=== PATIENT | male | born 1940 | race Caucasian/White ===

== ENCOUNTER → 2016-10-27 | Outpatient (CLI) | payer MEDICARE, OTHER | END | disposition home or self-care (01) | LOC: CFH 15:14 | PROVIDERS: ATTEND Internal Medicine Cardiovascular Disease | DX: R22.32 Localized swelling, mass and lump, left upper limb (principal); I82.722 Chronic embolism and thrombosis of deep veins of left upper extremity ==

== ENCOUNTER → 2016-11-13 | Outpatient (CLI) | payer MEDICARE, OTHER | END | disposition home or self-care (01) | LOC: CARD 09:42 | PROVIDERS: ATTEND Neurological Surgery | DX: M51.36 Other intervertebral disc degeneration, lumbar region (principal); J84.9 Interstitial pulmonary disease, unspecified | CPT/HCPCS: 94060; 94726; 94729 ==

== ENCOUNTER → 2016-11-16 | Outpatient (CLI) | payer MEDICARE, OTHER ==
[~2016-11-16] MED LIST: AMINOPHYLLINE 25 MG/ML, 10ML ONE; REGADENOSON 0.4 MG/5 ML SYRINGE ONE
== END | disposition home or self-care (01) ==
LOC: CFH 12:09
PROVIDERS: ATTEND Internal Medicine Cardiovascular Disease
DX: Z01.810 Encounter for preprocedural cardiovascular examination (principal); R07.9 Chest pain, unspecified
CPT/HCPCS: 78452; 93017; A9502; J0280; J2785

== ENCOUNTER → 2016-11-18 | Outpatient (CLI) | payer MEDICARE, OTHER | END | disposition home or self-care (01) | LOC: RAD 11:08 | PROVIDERS: ATTEND Neurological Surgery | DX: M41.86 Other forms of scoliosis, lumbar region (principal) | CPT/HCPCS: 72072; 72082; 72100 ==

== ENCOUNTER → 2016-11-29 | Outpatient (CLI) | payer MEDICARE, OTHER | END | disposition home or self-care (01) | LOC: LAB 16:18 | PROVIDERS: ATTEND Neurological Surgery | DX: M40.295 Other kyphosis, thoracolumbar region (principal); M47.895 Other spondylosis, thoracolumbar region; M51.36 Other intervertebral disc degeneration, lumbar region; M51.26 Other intervertebral disc displacement, lumbar region | CPT/HCPCS: 36415; 72072; 72100; 85025; 85651; 86140; 87040 ==

== ENCOUNTER → 2016-12-27 | Outpatient (CLI) | payer MEDICARE, OTHER | END | disposition home or self-care (01) | LOC: RAD 15:13 | PROVIDERS: ATTEND Internal Medicine Critical Care Medicine | DX: J98.4 Other disorders of lung (principal); M41.84 Other forms of scoliosis, thoracic region | CPT/HCPCS: 71250 ==

== ENCOUNTER → 2017-10-23 | Outpatient (CLI) | payer MEDICARE | END | disposition home or self-care (01) | LOC: WOUND 13:15 | PROVIDERS: ATTEND Nurse Practitioner Family | DX: L97.212 Non-pressure chronic ulcer of right calf with fat layer exposed (principal); I12.0 Hypertensive chronic kidney disease with stage 5 chronic kidney disease or end stage renal disease; N18.6 End stage renal disease; M21.371 Foot drop, right foot; B02.23 Postherpetic polyneuropathy; Z94.4 Liver transplant status; Z99.2 Dependence on renal dialysis | CPT/HCPCS: 11042; 87070; 87077; 87186; 87205; G0463; WOU0463 ==

== ENCOUNTER → 2017-10-30 | Outpatient (CLI) | payer MEDICARE | END | disposition home or self-care (01) | LOC: WOUND 10:41 | PROVIDERS: ATTEND Internal Medicine Infectious Disease | DX: L97.212 Non-pressure chronic ulcer of right calf with fat layer exposed (principal); I12.0 Hypertensive chronic kidney disease with stage 5 chronic kidney disease or end stage renal disease; N18.6 End stage renal disease; M21.371 Foot drop, right foot; B02.23 Postherpetic polyneuropathy; E44.1 Mild protein-calorie malnutrition; J44.9 Chronic obstructive pulmonary disease, unspecified; Z99.2 Dependence on renal dialysis; Z94.4 Liver transplant status | CPT/HCPCS: 97597 ==